=== PATIENT | female | born 1995 | race Caucasian/White ===

== ENCOUNTER 2019-04-10 19:17 | Emergency (ER) | payer BC, OTHER ==
[2019-04-10 19:36] VITALS: BP 145/81; PULSE 99; TEMP 98.7; BMI 24.8
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
== END 2019-04-10 21:31 | disposition home or self-care (01) ==
LOC: JERFT 19:17
DX: M25.561 Pain in right knee (principal); M25.562 Pain in left knee; V43.52XA Car driver injured in collision with other type car in traffic accident, initial encounter; Y92.414 Local residential or business street as the place of occurrence of the external cause; Y93.89 Activity, other specified; Y99.8 Other external cause status
CPT/HCPCS: 73562-TC-LT-FY; 73562-TC-RT-FY; 99281-25

== ENCOUNTER 2019-05-14 16:38 | Emergency (ER) | payer BC, OTHER ==
--- NOTE | 2019-05-14 16:48 | PDOC ---
Rapid Medical Evaluation Time Seen by Provider: 05/14/19 16:45 Medical Evaluation: Allergies Allergy/AdvReac Type Severity Reaction Status Date / Time No Known Allergies Allergy Verified 05/14/19 16:45 05/14/19 16:46 Pt presents for evaluation of an abscess of the L gluteal fold. Has been using warm water soaks with little relief of symptoms. Has history of abscesses. Exam: deferred to provider Orders: nothing Pt to proceed to the ER for further evaluation Discharge Disposition - Diagnosis Abscess - Referrals - Patient Instructions - Post Discharge Activity
[2019-05-14 16:49] VITALS: BP 145/92; PULSE 114; TEMP 99; BMI 24.1
--- NOTE | 2019-05-14 17:47 | PDOC ---
History of Present Illness - General Chief Complaint: Abscess Boil Stated Complaint: BACK PAIN Time Seen by Provider: 05/14/19 16:45 - History of Present Illness Initial Comments: 05/14/19 17:45 24-year-old female without comorbidities presents for a painful tender area on her left buttocks which has been slowly increasing in pain over the last 3 days. She did have an abscess in that area which was incised and drained a few years ago. She has no systemic symptoms. Past History - Past Medical History Allergies/Adverse Reactions: Allergies Allergy/AdvReac Type Severity Reaction Status Date / Time No Known Allergies Allergy Verified 05/14/19 16:45 Home Medications: Ambulatory Orders Sulfamethoxazole/Trimethoprim [Bactrim Ds -] 1 tab PO BID #14 tablet 10/25/14 COPD: No - Psycho Social/Smoking Cessation Hx Smoking Status: No Smoking History: Never smoked Have you smoked in the past 12 months: No Number of Cigarettes Smoked Daily: 0 Hx Alcohol Use: No Drug/Substance Use Hx: No Review of Systems - Review of Systems Constitutional: No: Fever Integumentary: Yes: See HPI, Lesions *Physical Exam - Vital Signs Last Vital Signs Temp Pulse Resp BP Pulse Ox 99 F 114 H 18 145/92 100 05/14/19 16:45 05/14/19 16:45 05/14/19 16:45 05/14/19 16:45 05/14/19 16:45 - Physical Exam 05/14/19 17:46 There is a hard indurated area with erythema warmth tenderness and induration on the superior aspect of the left medial buttock. The center is fluctuant however the area around the center is hard and indurated. The area in the center is covered by eschar Medical Decision Making - Medical Decision Making 05/14/19 17:46 This is an abscess that is not ready to be I&D at this time. Encouraged warm compresses Tylenol Motrin for pain. Patient was placed on a course of Bactrim and Keflex and told to follow-up with general surgery. She is in agreement with the plan Discharge - Discharge Information Problems reviewed: Yes Clinical Impression/Diagnosis: Abscess Condition: Stable Disposition: HOME - Admission No - Follow up/Referral - Patient Discharge Instructions Additional Instructions: Please take the antibiotics as directed and return to the emergency room for worsening symptoms. Without fail follow-up with general surgery in 2 to 3 days for further evaluation and treatment options. Warm compresses multiple times a day at least 5-6 times a day will help soften up the abscess and allow it to be drained - Post Discharge Activity
== END 2019-05-14 17:56 | disposition home or self-care (01) ==
LOC: JERFT 16:38
DX: L02.31 Cutaneous abscess of buttock (principal)
CPT/HCPCS: 99281-25